=== PATIENT | female | born 1970 | race Caucasian/White ===

== ENCOUNTER → 2021-03-02 | Outpatient (CLI) | payer MEDICARE, OTHER ==
[~2021-03-02] MED LIST: ALBUTEROL SULFAT2 MG PO; AZELASTINE205.5 MCG/ NARES; BONIVA150 MG PO; CELEXA40 MG PO; DITROPAN XL10 M1 PO; HYOSCYAMIN0.125 MG/1 SUBQ; IPRAT-ALBUT 0.5-3 ML INH; IPRATROPIUM BRO15 ML NARES; LIALDA1.2 GM PO; LIPITOR 20 MG T20 M1 PO; MORPHINE SULFAT30 M4 PO; ONDANSETRON HCL4 M2 PO; ONE-DAILY MULT1 EAC1 PO; PERCOCET 7.5-31 EAC1 PO; PROAIR HFA8.5 GM INH; PROBIOTIC1 EAC2 PO; PROTONIX40 M2 PO; RAYOS5 MG PO; REQUIP 0.25 M0.25 M1 PO; SINGULAIR 10 MG10 M1 PO; SYMBICORT160 MCG/4. INH; TIZANIDINE HCL4 M1 PO; VITAMIN D3 COM1 EACH PO; XANAX 0.5 MG0.5 MG PO
== END | disposition home or self-care (01) ==
LOC: M.LAB 11:58
PROVIDERS: ATTEND Family Medicine
DX: Z20.822 Contact with and (suspected) exposure to COVID-19 (principal); Z01.818 Encounter for other preprocedural examination; R10.9 Unspecified abdominal pain; Z98.890 Other specified postprocedural states; Z79.899 Other long term (current) drug therapy

== ENCOUNTER → 2021-03-03 | Day surgery (SDC) | payer MEDICARE, OTHER ==
--- NOTE | 2021-03-04 09:53 | OP ---
[address] [address] OPERATIVE REPORT Name: UMAIR JASMINE Room: [facility]#: [id number] Admission: 03/03/21 Attend Phys: Faizan Coleman II Discharge: Date of : 70 Report #: [id number] THIS REPORT FOR: cc: Maty Lunsford MD, Ghazal A. MD Harper, Charles B. III DO ~ cc: Trip Emmanuel MD DATE OF SURGERY: 03/03/2021 PREOPERATIVE DIAGNOSES: Right abdominal incisional pain and possible foreign body. POSTOPERATIVE DIAGNOSES: Right abdominal incisional pain and possible foreign body. SURGEON: Faizan Coleman DO CATTLE FARMER: Jama Coelho, PGY5 OPERATION PERFORMED: Right incision exploration of the abdomen with removal of foreign body. ANESTHESIA: General and bilateral TAP block by anesthesia. ESTIMATED BLOOD LOSS: 2 mL. SPECIMENS: Right abdomen stitch granuloma. COMPLICATIONS: None. INDICATIONS: The patient is a 50-year-old female who presented to my clinic with complaints of point tenderness at an incision in her right abdomen. This incision was a port site from a previous robotic-assisted hiatal hernia repair and LINX device installation. On physical exam, she was found to have a palpable small nodule just deep to the incision. We discussed the risks and benefits of local wound exploration with possible diagnostic laparoscopies.. Nothing was successfully found in the subcutaneous tissue. She understood all the risks and decided to proceed with surgery. DESCRIPTION OF PROCEDURE: After informed consent was obtained, the patient was brought to the operating room and placed in supine position. SCDs were on and running. Preoperative antibiotics were given. General anesthesia was administered with an ET tube. Bilateral transversus abdominis plane blocks were placed by anesthesia. An OG tube was placed by anesthesia. The patient was prepped and draped in the usual sterile fashion. [place] [address] OPERATIVE REPORT Name: UMAIR JASMINE Room: [facility]#: [id number] Admission: 03/03/21 Attend Phys: Faizan Coleman II Discharge: Date of : 70 Report #: [id number] confirm proper patient and procedure. A 15 blade was used to create a 1.5 cm incision through a previous scar at a right lateral port site. Dissection was carried through the dermis using cautery. Blunt dissection with a Juliette was used to isolate and separate a small palpable hard nodule from the surrounding subcutaneous fat. Cautery was used to amputate this tissue from the surrounding tissue. There was some superficial scar tissue that was also lysed, freeing up the subcutaneous fat from this tissue. The removed foreign body was inspected and was unable to be completely characterized as to what this was. It was sent off for permanent to pathology. The subcutaneous fat was palpated and appeared normal. There was no palpable hernia defect in the fascia deep to the incision. Therefore, the wound exploration was deemed complete. The wound was closed in layered fashion using 3-0 Vicryl, 4-0 Monocryl. Wounds were cleansed and dressed with Dermabond. The patient was emerged from anesthesia and transferred to the PACU in stable condition. All counts were correct. There were no complications. <ELECTRONICALLY SIGNED> By: Faizan Coleman III, DO 03/04/21 0953 [id number] Coleman III, DO /nt
--- NOTE | 2021-03-04 14:07 | PATH ---
[address] [address] PATHOLOGY RPT PROCEDURE Name: LEONIDES RAGSDALE Room: [facility]#: [id number] Admission: 03/03/21 Date of : 70 Discharge: Report #: [id number] Path Case #: [id number] [facility] Accession Number: [id number] . 01 Material submitted: . abdomen - STITCH GRANULOMA RIGHT ABDOMEN. Modifiers: right . 01 Clinical history: . EXPLORATION WOUND RIGHT ABDOMINAL PAIN . 02 Diagnosis: Stitch granuloma right abdomen: - Benign fibrofatty tissue with stitch granuloma associated with entrapped brown-black pigmented material, fibrosis and coarse calcification. . (REBECCA:mml; 03/04/2021) [facility] 03/04/2021 [facility]7 Local . 02 Electronically signed: . Trung Barlow MD, Pathologist NPI- [id number] . 01 Gross description: . The specimen is received in formalin, labeled "Leonides Ragsdale, stitch granuloma R abdomen". Received is a segment of pink-eng to yellow-eng tissue measuring 1.1 x 0.8 x 0.3 cm in greatest dimensions. The specimen is trisected and entirely submitted in cassette A1. (CAA; 03/03/2021) QA/QA 03/04/2021 1224 Local . 02 Pathologist provided ICD-10: T81.89XA, R10.9 . 02 CPT . 679710 Specimen Comment: A courtesy copy of this report has been sent to [phone], [phone] Specimen Comment: [phone], Specimen Comment: Report sent to , DR HARRY / DR ORTIZ Performed at: 01 [facility] [address], [place] [id number] MD Tito Hook MD Phone: [phone] Performed at: [address] [facility] [address] [address] [place], [place] [id number] MD Trung Barlow MD Phone: [phone]
== END | disposition home or self-care (01) ==
LOC: M.SUR 05:59
PROVIDERS: ATTEND Student in an Organized Health Care Education/Training Program
DX: T81.89XA Other complications of procedures, not elsewhere classified, initial encounter (principal); L92.3 Foreign body granuloma of the skin and subcutaneous tissue; R10.9 Unspecified abdominal pain; R10.811 Right upper quadrant abdominal tenderness; Z98.890 Other specified postprocedural states; Z88.8 Allergy status to other drugs, medicaments and biological substances; Z79.899 Other long term (current) drug therapy; Y83.8 Other surgical procedures as the cause of abnormal reaction of the patient, or of later complication, without mention of misadventure at the time of the procedure